=== PATIENT | male | born 1975 | race Caucasian/White ===

== ENCOUNTER 2016-09-25 12:26 | Emergency (ER) | payer OTHER ==
[~2016-09-25] VITALS: Ht 165.1 cm; Wt 97.7 kg
[2016-09-25 12:28] VITALS: BP 140/92; PULSE 74; RESP 16; O2SAT 98
--- NOTE | 2016-09-25 12:37 | ED.REPORT ---
HPI-Trauma Minor / Fall Date of Service Sep 25, 2016 ED Provider: Gamal Mcgill DO The patient is a 41 year old male who presents to the emergency department after he fell off of a horse prior to arrival. The patient states that he fell off a horse and hit his head on a rock. He does not remember getting back onto the horse. At this time he complains of neck pain and head pain. He has been able to walk since the injury. He denies extremity pain, chest pain, abdominal pain, back pain or shortness of breath. His tetanus is up to date. Nursing Notes Stated Complaint: FELL OFF A HORSE/HEAD INJURY Chief Complaint: Multiple Trauma/Fall Nursing Notes Reviewed: Yes Allergies: Coded Allergies: No Known Allergies (Unverified , 09/25/16) Scheduled PRN Naproxen (Naproxen) 500 Mg Tab 500 MG PO BID PRN PRN For Pain General Time Seen by MD: 12:35 Chief Complaint Fall (from horse), Head injury, Neck pain Hx Obtained From: Patient Arrived By: Walk-in Onset Occurred: Just prior to arrival Symptom Duration: Since onset Caused by: Fall from height... (3-6 feet) Location: Head Neck Quality: Painful Severity: Current: Moderate Severity: Maximum: Moderate Context: Immunizations Tetanus up to date Recent Healthcare: No recent doctor visit, No recent hospitalization Similar Sx Previous: No Past Medical History Past Medical History OCD Past Surgical History Reports: Appendectomy Family History Noncontributory Smoking History Never Smoker Social History Alcohol Use: Denies alcohol use Drug Use: Denies drug use Other Social History: Good social support, Local resident Ambulatory Status Independent Review of Systems Respiratory: Denies: Shortness of breath Musculoskeletal: Reports: Neck pain, Denies: Back pain, Extremity pain Neurologic: Reports: Change LOC, Headache Complete sys rev & neg: except as marked. Cardiovascular: Denies: Chest pain GI: Denies: Abdominal pain Physical Exam Initial Vital Signs Vital Signs (First) Date Time Temp Pulse Resp B/P Pulse Ox O2 Delivery O2 Flow Rate FiO2 09/25/16 12:28 36.3 74 16 140/92 98 Room Air Initial VS: Reviewed ENT: Mucous membranes moist, Conjunctiva normal, No scleral icterus Respiratory: Breath sounds normal, Clear to auscultation, No respiratory distress Cardiovascular: Regular rate & rhythm, Heart sounds normal, Intact distal pulses Abdomen / GI: Soft, Non-tender, No guarding, No rebound, No distention Extremities: Vascular intact, Neuro intact, No swelling, No tenderness Skin: Warm, Dry, No cyanosis Neurologic: Alert, Oriented, Nonfocal Psychiatric: Mood/affect normal, Behavior normal, Normal thought content General/Constitutional: Awake, Alert, Cooperative Neck: No midline vertebral tend Trauma - Neck Specific: Positive: Immobilized - C Collar Upper cervical/basilar skull tenderness to palpation. Head / Eyes: Normocephalic, PERRL, EOMI 1/2 cm abrasion to the midline occiput Back: Full range of motion, No midline vertebral tend, No paraspinal tenderness Interpretation & Diagnostics CT Head Interpretation IMPRESSION: No acute intracranial findings. Dictated by: Jany Yu M.D. on 09/25/2016 at 13:24 Study: Head CT no contrast Interpretation / Wet Read by: Interpret - ED physician CT C-Spine Interpretation IMPRESSION: 1. No acute cervical spine injury. Dictated by: Jany Yu M.D. on 09/25/2016 at 13:18 Study type: CT no contrast Interpretation / Wet Read by: Interpret - Radiologist Re-Eval/Medical Decision Med Decision/Clinical Course Isolated head and neck pain after horse accident. Neurologically intact no other identifiable injuries. Will be discharged. Return and follow-up precautions given. Source of Hx: Old records, Family Re-Evaluation/Progress #1: Time of Eval: 12:45 Re-Evaluation/Progress Note: He does not need any pain medication at this time. Re-Evaluation/Progress #2: Time of Eval: 13:31 Re-Evaluation/Progress Note: Rechecked the patient. Discussed results, diagnosis, and plan for discharge. All questions were addressed. Counseled Regarding: Diagnosis, Lab results, Need for follow-up, When/why to return to ED Discharge & Departure Impression: Primary Impression: Fall from horse Encounter type: initial encounter Qualified Code: V80.010A - Animal-rider injured by fall from or being thrown from horse in noncollision accident, initial encounter Additional Impressions: Scalp laceration Encounter type: initial encounter Qualified Code: S01.01XA - Laceration without foreign body of scalp, initial encounter Head injury Encounter type: initial encounter Qualified Code: S09.90XA - Unspecified injury of head, initial encounter Disposition: Home Discharge Condition All VS Reviewed: Yes Condition: Stable Additional Instructions: Thank you for entrusting us with your care today. Your workup today included a head and neck CT. The results are reassuring. There is no evidence of intracranial bleeding, skull fractures, or vertebral fractures. Use naproxen as needed for pain. You can apply ice to the painful areas if that helps. Followup with your regular doctor if your pain is not improving in 1 week. Please return to the emergency department if you develop increased pain, vomiting, dizziness, lightheadedness, weakness, numbness, or any other new or concerning symptoms. Referrals: Audie Sanders MD (PCP) Scribe Attestation Portions of this note were transcribed by Melissa Dominguez. I, Dr. Mcgill personally performed the history, physical exam and medical decision-making; I reviewed and confirmed the accuracy of the information in the transcribed note. Signed by: Indiana Gifford, 09/25/2016 at 1400. copies to: Audie Sanders MD, Timothy S DO Sep 25, 2016 12:37 Melissa Dominguez Sep 25, 2016 12:41
--- NOTE | 2016-09-25 13:25 | DRSVH ---
PROCEDURE: CT CERVICAL SPINE WITHOUT CONTRAST ([id number]) INDICATIONS: fell off horse hit head +loc TECHNIQUE: Noncontrast 3 mm thick sections acquired from the skull base to the T4 level. Sagittal and coronal r eformats were then constructed. For radiation dose reduction, the following was used: automated exp osure control, adjustment of mA and/or kV according to patient size. COMPARISON: None. FINDINGS: Image quality: Excellent. Bones: No fractures or dislocations. Visualized superior ribs are intact. Soft tissues: Prevertebral soft tissues are normal in thickness. No paravertebral hematomas. No ap ical pneumothoraces. IMPRESSION: 1. No acute cervical spine injury. Dictated by: Jany Yu M.D. on 09/25/2016 at 13:18 Approved by: Jany Yu M.D. on 09/25/2016 at 13:23
--- NOTE | 2016-09-25 13:28 | DRSVH ---
PROCEDURE: CT BRAIN WITHOUT CONTRAST ([id number]) INDICATIONS: fell off horse hit head +loc TECHNIQUE: Noncontrast 4.5 mm thick angled axial sections acquired from the foramen magnum to the vertex, with c oronal reformats. COMPARISON: None. FINDINGS: Image quality: Excellent. CSF spaces: Basal cisterns are patent. No extra-axial fluid collections. Ventricles are normal in size and shape. Brain: No midline shift. No intracranial masses or hemorrhage. Rey-white matter interface is norm al. Skull and face: Calvarium and visualized facial bones are intact, without suspicious lesions. Sinuses: Visualized sinuses and mastoids are clear. IMPRESSION: No acute intracranial findings. Dictated by: Jany Yu M.D. on 09/25/2016 at 13:24 Approved by: Jany Yu M.D. on 09/25/2016 at 13:27
[2016-09-25] MEDS ORDERED: NPR500T PO (13:34)
[2016-09-25 13:42] VITALS: BP 142/98; PULSE 86; RESP 18; O2SAT 99
== END 2016-09-25 13:43 | disposition home or self-care (01) ==
LOC: SED 12:26
DX: S01.01XA Laceration without foreign body of scalp, initial encounter (principal); S09.90XA Unspecified injury of head, initial encounter; V80.010A Animal-rider injured by fall from or being thrown from horse in noncollision accident, initial encounter; Y93.52 Activity, horseback riding; Y92.9 Unspecified place or not applicable; Y99.8 Other external cause status